=== PATIENT | male | born 1965 | race Hispanic/Latino ===

== ENCOUNTER 2018-03-01 13:34 | Emergency (ER) | payer MEDICARE | END 2018-03-01 14:22 | disposition home or self-care (01) | LOC: EDH 13:34 | DX: Z02.89 Encounter for other administrative examinations (principal); K74.60 Unspecified cirrhosis of liver; F32.9 Major depressive disorder, single episode, unspecified; F14.10 Cocaine abuse, uncomplicated; Z72.0 Tobacco use ==

== ENCOUNTER 2018-09-06 09:12 | Emergency (ER) | payer MEDICARE | END 2018-09-06 10:11 | disposition home or self-care (01) | LOC: EEVIPCON 09:12 → EDH 09:12 | DX: K45.8 Other specified abdominal hernia without obstruction or gangrene (principal); K74.60 Unspecified cirrhosis of liver | CPT/HCPCS: 99281 ==

== ENCOUNTER 2019-02-18 05:51 | Inpatient (IN) | payer MEDICARE ==
[~2019-02-18] VITALS: Ht 175.3 cm; Wt 73.8 kg
[2019-02-18 07:02] LABS: BASOPHILS % (AUTO) 0.5 % (0.0-5.0); EOSINOPHILS % (AUTO) 2.7 % (0.0-8.0); HEMATOCRIT 35.6 % (42-54); LYMPHOCYTES % (AUTO) 14.6 % (21.0-51.0); MEAN CORPUSCULAR HEMOGLOBIN 33.8 pg (27.0-33.0); MEAN CORPUSCULAR HGB CONC 35.1 g/dL (32.0-36.0); MEAN CORPUSCULAR VOLUME 96.3 fL (79-99); MONOCYTES % (AUTO) 10.3 % (3.0-13.0); NEUTROPHILS % (AUTO) 71.9 % (40.0-77.0); NUCLEATED RED BLOOD CELLS 0.1 % (0.0-0.19); PLATELET COUNT (AUTO) 49 K/uL (130-400); RED BLOOD CELL COUNT(AUTO) 3.69 MIL/uL (4.50-6.20); RED CELL DISTRIBUTION WIDTH 15.2 % (11.0-15.5); WHITE BLOOD COUNT (AUTO) 4.6 K/uL (4.8-10.8)
[2019-02-18] MEDS ORDERED: ONDANSETRON HCL 4 MG/2 ML VIAL ONE (07:07)
[2019-02-18] MEDS ORDERED: FAMOTIDINE/PF 20 MG/2 ML VIAL IV ONE (07:08)
[2019-02-18 07:30] LABS: INR 1.38 (0.85-1.15); PARTIAL THROMBOPLASTIN TIME 36.2 SEC (26.3-35.5); PROTHROMBIN TIME 14.4 SEC (9.6-11.6)
[2019-02-18 07:54] LABS: BILIRUBIN,TOTAL 1.5 mg/dL (0.2-1.0); CREATININE 0.6 mg/dL (0.5-1.5); TOTAL PROTEIN, SERUM 6.1 g/dL (6.0-8.3)
[2019-02-18 08:02] LABS: AMPHET/METH SCREEN,URINE NEGATIVE (NEGATIVE); BARBITURATE SCREEN, URINE NEGATIVE (NEGATIVE); BENZODIAZEPINES SCREEN,URINE NEGATIVE (NEGATIVE); CANNABINOID SCREEN,URINE POSITIVE (NEGATIVE); COCAINE SCREEN,URINE POSITIVE (NEGATIVE); OPIATE SCREEN,URINE NEGATIVE (NEGATIVE); PHENCYCLIDINE SCREEN,URINE NEGATIVE (NEGATIVE)
[2019-02-18 08:15] LABS: APPEARANCE,URINE Clear (CLEAR); BILIRUBIN,URINE Negative (NEGATIVE); COLOR,URINE Yellow (YELLOW); GLUCOSE, URINE (UA) Negative (NEGATIVE); KETONES,URINE Negative (NEGATIVE); LEUKOCYTE ESTERASE ,URINE Negative (NEGATIVE); NITRATE,URINE Negative (NEGATIVE); OCCULT BLOOD,URINE Negative (NEGATIVE); PH,URINE 5.5 (5.0-8.0); PROTEIN,URINE Negative (NEGATIVE)
[2019-02-18 08:20] LABS: ALBUMIN 2.2 g/dL (3.5-5.0)
[2019-02-18] MEDS ORDERED: LACTULOSE 20 GM/30 ML UDCUP ONE (09:31)
[2019-02-18] MEDS ORDERED: THIAMINE HCL 100 MG/ML 2ML VIAL ONE (10:32)
[2019-02-18 11:11] VITALS: BP 117/80
[2019-02-18] MEDS: PANTOPRAZOLE 40 MG/VIAL IVP SCH (12:00)
[2019-02-18] MEDS: SODIUM CHLORIDE 0.9% 1000ML 1,000 ML IV SCH (14:45)
[2019-02-18 16:00] VITALS: BP 119/69
[2019-02-18 18:18] LABS: HEMATOCRIT 35.1 % (42-54)
[2019-02-18 19:00] VITALS: BP 124/75
[2019-02-18] MEDS: PHARMACY COMMUNICATION MISC SCH (21:00)
[2019-02-18] MEDS: LACTULOSE 20 GM/30 ML UDCUP PO SCH (21:31)
[2019-02-18 23:11] LABS: HEMATOCRIT 34.9 % (42-54)
[2019-02-18 23:35] VITALS: BP 128/60
[2019-02-19 03:48] VITALS: BP 118/74
[2019-02-19] MEDS: SODIUM CHLORIDE 0.9% 1000ML 1,000 ML IV SCH ×2 (04:13→17:25)
[2019-02-19 05:15] LABS: HEMATOCRIT 35.3 % (42-54); MEAN CORPUSCULAR HEMOGLOBIN 33.3 pg (27.0-33.0); MEAN CORPUSCULAR HGB CONC 35.1 g/dL (32.0-36.0); MEAN CORPUSCULAR VOLUME 94.7 fL (79-99); NUCLEATED RED BLOOD CELLS 0.1 % (0.0-0.19); PLATELET COUNT (AUTO) 61 K/uL (130-400); RED BLOOD CELL COUNT(AUTO) 3.72 MIL/uL (4.50-6.20); RED CELL DISTRIBUTION WIDTH 15.4 % (11.0-15.5); WHITE BLOOD COUNT (AUTO) 4.1 K/uL (4.8-10.8)
[2019-02-19 05:22] LABS: ALBUMIN 2.1 g/dL (3.5-5.0); BILIRUBIN,TOTAL 2.5 mg/dL (0.2-1.0); CREATININE 0.7 mg/dL (0.5-1.5); POTASSIUM 3.8 mmol/L (3.5-5.1); TOTAL PROTEIN, SERUM 6.1 g/dL (6.0-8.3)
[2019-02-19 05:32] LABS: BAND NEUTROPHILS % (MANUAL) 5 % (0-2); BASOPHILS % (MANUAL) 1 % (0-2); EOSINOPHILS % (MANUAL) 5 % (1-6); LYMPHOCYTES % (MANUAL) 21 % (22-44); MAN.DIFF COMMENT-IMPRESSION MANUAL DIFFERENTIAL; MONOCYTES % (MANUAL) 5 % (2-9); SEGMENTED NEUTROPHILS % 63 % (40-70)
[2019-02-19 08:00] VITALS: BP 116/76
--- NOTE | 2019-02-19 08:00 | NUR ---
PT . AAO X 3 . PT IS ABLE TO RESPOND TO HIS CARE. REVIEW PLAN OF CARE. BED LEVEL DOWN AND CALL LILGHT IN REACH AND HAS [employer] STAFF AT THE BEDSIDE , AND CUFFED.
[2019-02-19] MEDS: THIAMINE HCL 100 MG/ML 2ML VIAL IV SCH (08:27)
[2019-02-19] MEDS: PANTOPRAZOLE 40 MG/VIAL IVP SCH (08:27)
[2019-02-19] MEDS: LACTULOSE 20 GM/30 ML UDCUP PO SCH ×2 (08:28→21:47)
[2019-02-19] MEDS: PHARMACY COMMUNICATION MISC SCH (09:00)
[2019-02-19 10:42] LABS: HEMATOCRIT 34.7 % (42-54)
--- NOTE | 2019-02-19 11:30 | NUR ---
[employer] SAL[employer] REPRESENTATIVE HERE , WITH POLICE STAFF , AT THE BEDSIDE, , , , PT IS FROM [facility] .. RIGHTS WERE GIVEN AND AGREE TO FOLLOW WITH COURT . SETUP. .. CORNETIST ARE LEAVING . HIM IN THE ROOM. . .. [facility] TECHNICIAN LIGHT IN REACH. CLOSE TO NURSES STATION, AND FALL RISK REVIEW .
[2019-02-19 12:00] VITALS: BP 123/63
--- NOTE | 2019-02-19 15:13 | NUR ---
INITIAL: Met with pt this afternoon to discuss dcp. No family at the bedside. Pt very sleepy but is able to arouse and answer questions. Pt states that prior to admission he was living alone, he is independent w ambulation and ADLs. He owns a walker if needed and has provider services 4hr/day. Pt states that his neighbor provides transportation when needed. Pt states that he plans to return home at [place]. Will continue to follow and wait for Md recommendations. Addendum: 02/19/19 at 1515 by CARMENZA GALE CM Amended: Links added.
[2019-02-19 16:00] VITALS: BP 104/55
--- NOTE | 2019-02-19 18:00 | NUR ---
PT DID WELL . WITH HIS CUFF OFF AND HIS MENTAL STATUS. . DID NOT REFUSE CARE. VERY COOPERATIVE . CALL LIGHT IN REACH
[2019-02-19 19:20] VITALS: BP 136/59
[2019-02-19] MEDS: PANTOPRAZOLE SODIUM 40 MG TABLET.DR PO SCH (21:47)
[2019-02-19 23:18] VITALS: BP 130/73
[2019-02-20 03:45] VITALS: BP 119/67
[2019-02-20 05:09] LABS: HEMATOCRIT 36.2 % (42-54); MEAN CORPUSCULAR HEMOGLOBIN 33.8 pg (27.0-33.0); MEAN CORPUSCULAR HGB CONC 35.4 g/dL (32.0-36.0); MEAN CORPUSCULAR VOLUME 95.5 fL (79-99); NUCLEATED RED BLOOD CELLS 0.1 % (0.0-0.19); PLATELET COUNT (AUTO) 54 K/uL (130-400); RED BLOOD CELL COUNT(AUTO) 3.79 MIL/uL (4.50-6.20); RED CELL DISTRIBUTION WIDTH 15.2 % (11.0-15.5); WHITE BLOOD COUNT (AUTO) 4.5 K/uL (4.8-10.8)
[2019-02-20 05:14] LABS: ALBUMIN 2.2 g/dL (3.5-5.0); BILIRUBIN,TOTAL 2.3 mg/dL (0.2-1.0); CREATININE 0.7 mg/dL (0.5-1.5); POTASSIUM 3.6 mmol/L (3.5-5.1); TOTAL PROTEIN, SERUM 6.1 g/dL (6.0-8.3)
[2019-02-20] MEDS: SODIUM CHLORIDE 0.9% 1000ML 1,000 ML IV SCH (05:50)
[2019-02-20 06:25] LABS: BAND NEUTROPHILS % (MANUAL) 2 % (0-2); BASOPHILS % (MANUAL) 1 % (0-2); EOSINOPHILS % (MANUAL) 3 % (1-6); LYMPHOCYTES % (MANUAL) 23 % (22-44); MAN.DIFF COMMENT-IMPRESSION MANUAL DIFFERENTIAL; MONOCYTES % (MANUAL) 5 % (2-9); SEGMENTED NEUTROPHILS % 66 % (40-70)
[2019-02-20 06:27] LABS: PLATELET MORPHOLOGY COMMENT MARKED DECREASE
[2019-02-20 07:00] VITALS: BP 143/83
[2019-02-20] MEDS: LACTULOSE 20 GM/30 ML UDCUP PO SCH (08:27)
[2019-02-20] MEDS: PANTOPRAZOLE SODIUM 40 MG TABLET.DR PO SCH (08:27)
[2019-02-20] MEDS: THIAMINE HCL 100 MG/ML 2ML VIAL IV SCH (08:27)
[2019-02-20 11:00] VITALS: BP 110/61
[2019-02-20 16:00] VITALS: BP 99/54
[2019-02-20] MEDS ORDERED: LACT PO (18:53)
[2019-02-20] MEDS ORDERED: PANT40TA PO (18:53)
[2019-02-20] MEDS ORDERED: THIA100T75 PO (18:53)
[2019-02-20 19:30] VITALS: BP 103/57
--- NOTE | 2019-02-20 20:30 | NUR ---
PATIENT GIVEN DISCHARGE INSTRUCTION AND VERBALIZED UNDERSTANDING ,IV REMOVED AND SITES DRESSED , SUMMARY OF CARE PRINTED FOR PATIENT AND HE INSTRUCTED TO FOLLOW-UP WITH HIS PRIMARY PHYSICIAN IN 1 WEEK. NO QUESTIONS OR CONCERNS AT THIS TIME .
--- NOTE | 2019-02-20 20:44 | NUR ---
PT DISCHARGE TO ER LOBBY INFORMED HOUSE THAT PT DID NOT HAVE A RIDE OR AND ADDRESS TO WHICH HE COULD GET DISCHARGED. PT STATED HE WOULD WALK HOME. ESCORTED PT TO ER LOBBY FOR DISCHARGE. PT DID NOT VISUALIZE ANY DISTRESS AT THIS TIME.
== END 2019-02-20 20:40 | disposition home or self-care (01) | DRG 441 ==
LOC: EDH 05:51 → EDHIP 10:01 → 3AH 11:47
PROVIDERS: ADMIT Family Medicine; ATTEND Family Medicine
DX: K72.00 Acute and subacute hepatic failure without coma (principal); G93.41 Metabolic encephalopathy; E43 Unspecified severe protein-calorie malnutrition; K92.0 Hematemesis; F12.10 Cannabis abuse, uncomplicated; F14.10 Cocaine abuse, uncomplicated; Z91.19 Patient's noncompliance with other medical treatment and regimen; D69.59 Other secondary thrombocytopenia; K70.31 Alcoholic cirrhosis of liver with ascites
CPT/HCPCS: 36415; 74176; 80053; 80305; 81003; 82140; 82270; 82550; 83605; 83690; 84484; 85014; 85018; 85025; 85610; 85730; 86850; 86900; 86901; 93005; C9113; G0378; G0480; J2405; J3411; J3490

== ENCOUNTER → 2019-12-06 | Outpatient (CLI) | payer MEDICARE ==
[~2019-12-06] MED LIST: LACT PO; PANT40TA PO; THIA100T75 PO
== END | disposition home or self-care (01) ==
LOC: RAH 09:59
PROVIDERS: ATTEND Family Medicine
DX: K74.60 Unspecified cirrhosis of liver (principal)
CPT/HCPCS: 76700